=== PATIENT | male | born 1955 | race Caucasian/White ===

== ENCOUNTER 2024-02-16 15:21 | Inpatient (IN) | payer MEDICARE ==
[~2024-02-16] VITALS: Ht 177.8 cm; Wt 98.9 kg
[2024-02-16] MEDS ORDERED: NITROGLYCERIN PACKET 1 GM PACKET ONE (15:40)
[2024-02-16] MEDS: NITROGLYCERIN PACKET 1 GM PACKET TD ONE (15:41)
[2024-02-16 15:46] LABS: BASOPHILS % (AUTO) 0.8 % (0.0-2.0); EOSINOPHILS # (AUTO) 0.2 K/uL (0.0-0.7); EOSINOPHILS % (AUTO) 3.5 % (0.0-6.0); HEMATOCRIT 33 % (39-51); HEMOGLOBIN 11.2 g/dL (13.5-17.5); LYMPHOCYTES # (AUTO) 0.7 K/uL (0.8-4.8); LYMPHOCYTES % (AUTO) 13.8 % (20.0-44.0); MEAN CORPUSCULAR HEMOGLOBIN 31 PG (26.0-33.0); MEAN CORPUSCULAR HGB CONC 34 g/dl (31.0-36.0); MEAN CORPUSCULAR VOLUME 92 fL (80-96); MONOCYTES # (AUTO) 0.5 K/uL (0.1-1.30); MONOCYTES % (AUTO) 10.1 % (2.0-12.0); NEUTROPHILS # (AUTO) 3.7 K/uL (1.8-8.9); NEUTROPHILS % (AUTO) 71.8 % (43.0-81.0); PLATELET COUNT (AUTO) 132 K/uL (150-450); RED BLOOD CELL COUNT(AUTO) 3.59 MIL/uL (4.5-6.0); RED CELL DISTRIBUTION WIDTH 13.6 % (11.5-15.0); WHITE BLOOD COUNT (AUTO) 5.2 K/uL (4.3-11.0)
[2024-02-16 16:05] LABS: CALCIUM, SERUM 8.9 mg/dL (8.5-10.1); CARBON DIOXIDE 28 mmol/L (21-32); CHLORIDE 101 mmol/L (98-107); CREATININE 5.7 mg/dL (0.6-1.3); GLUCOSE 286 mg/dL (74-106); POTASSIUM 4.1 mmol/L (3.5-5.1); SODIUM SERUM 140 mmol/L (136-145); UREA NITROGEN, BLOOD 34 mg/dL (7-18)
[2024-02-16] MEDS ORDERED: LEVO200T8 PO (16:16)
[2024-02-16] MEDS ORDERED: TAMS-12 PO (16:16)
[2024-02-16] MEDS ORDERED: CLON0.1T PO (16:16)
[2024-02-16] MEDS ORDERED: HYDR100T27 PO (16:16)
[2024-02-16] MEDS ORDERED: CLOP75TA15 PO (16:16)
[2024-02-16] MEDS ORDERED: DOCU100T2 PO (16:16)
[2024-02-16] MEDS ORDERED: OMEP20CA15 PO (16:16)
[2024-02-16] MEDS ORDERED: ATOR40TA PO (16:16)
[2024-02-16] MEDS ORDERED: ISOS60TA72 PO (16:16)
[2024-02-16] MEDS ORDERED: CHOL500052 PO (16:16)
[2024-02-16] MEDS ORDERED: ASPI-1169 PO (16:16)
[2024-02-16] MEDS ORDERED: LOSA50TA39 PO (16:16)
[2024-02-16] MEDS ORDERED: CARV25TA2 PO (16:16)
[2024-02-16] MEDS ORDERED: CALC667C6 PO (16:16)
[2024-02-16] MEDS ORDERED: AMLO-212 PO (16:16)
[2024-02-16] MEDS ORDERED: INSU100I14 SQ (16:16)
[2024-02-16] MEDS ORDERED: FOLI0.4T6 PO (16:16)
[2024-02-16 16:20] LABS: INR 1.03 (0.91-1.10); PARTIAL THROMBOPLASTIN TIME 26.1 SEC (24.3-34.3); PROTHROMBIN TIME 10.9 SECS (9.2-11.1)
[2024-02-16] MEDS ORDERED: ONDANSETRON HCL/PF 4 MG/2 ML VIAL ONE (16:54)
[2024-02-16] MEDS ORDERED: MORPHINE SULFATE INJ 4 MG/ML DISP.SYRIN ONE (16:55)
[2024-02-16] MEDS: ONDANSETRON HCL/PF 4 MG/2 ML VIAL IVP ONE (17:01)
[2024-02-16] MEDS: MORPHINE SULFATE INJ 2 MG/ML DISP.SYRIN IV ONE (17:01)
[2024-02-16] MEDS ORDERED: Z GUARD REMEDY 4 OZ OINT TP PRN (18:00)
[2024-02-16] MEDS ORDERED: DEXTROSE 50%-WATER 50 ML DISP.SYRIN IV PRN (18:00)
[2024-02-16] MEDS ORDERED: ACETAMINOPHEN 325 MG TABLET PO PRN (18:00)
[2024-02-16] MEDS ORDERED: ONDANSETRON HCL/PF 4 MG/2 ML VIAL IVP PRN (18:00)
[2024-02-16 20:00] VITALS: BP 147/61; TEMP 98.3; O2SAT 93
[2024-02-16] MEDS: ASPIRIN 325 MG TABLET PO STA (20:34)
[2024-02-16] MEDS: NITROGLYCERIN PACKET 1 GM PACKET TOP SCH (20:34)
[2024-02-16] MEDS: METOPROLOL TARTRATE 25 MG TABLET PO SCH (20:36)
[2024-02-16] MEDS: CALCIUM ACETATE 667 MG CAP/TAB PO SCH (20:42)
[2024-02-16] MEDS ORDERED: HEPARIN SODIUM, PORCINE 5000 UNITS/1 ML VIAL SQ SCH (21:00)
[2024-02-16] MEDS: HEPARIN SODIUM, PORCINE 5000 UNITS/1 ML VIAL IVF PRN (21:20)
[2024-02-16] MEDS: HEPARIN INFUSION/D5W 500 ML IV SCH (21:32)
[2024-02-16] MEDS: PANTOPRAZOLE 40 MG TABLET.DR PO ONE (22:44)
[2024-02-16] MEDS: BLOOD SUGAR DIAGNOSTIC 1 EACH STRIP IN SCH (22:51)
[2024-02-17] VITALS: BP_SYST 120; BP_SYST 147; BP_DIAS 62; BP_DIAS 65; TEMP 98.2; TEMP 98.4; O2SAT 95; O2SAT 97
[2024-02-17 04:00] VITALS: BP 145/60; TEMP 98.1; O2SAT 96
[2024-02-17 05:13] LABS: BASOPHILS # (AUTO) 0.1 K/uL (0.0-0.2); BASOPHILS % (AUTO) 1.6 % (0.0-2.0); EOSINOPHILS # (AUTO) 0.3 K/uL (0.0-0.7); HEMATOCRIT 32 % (39-51); HEMOGLOBIN 10.8 g/dL (13.5-17.5); LYMPHOCYTES # (AUTO) 1.3 K/uL (0.8-4.8); LYMPHOCYTES % (AUTO) 25.2 % (20.0-44.0); MEAN CORPUSCULAR HEMOGLOBIN 31 PG (26.0-33.0); MEAN CORPUSCULAR HGB CONC 34 g/dl (31.0-36.0); MEAN CORPUSCULAR VOLUME 92 fL (80-96); MONOCYTES # (AUTO) 0.6 K/uL (0.1-1.30); MONOCYTES % (AUTO) 12.2 % (2.0-12.0); NEUTROPHILS # (AUTO) 2.8 K/uL (1.8-8.9); PLATELET COUNT (AUTO) 121 K/uL (150-450); RED BLOOD CELL COUNT(AUTO) 3.49 MIL/uL (4.5-6.0); RED CELL DISTRIBUTION WIDTH 13.7 % (11.5-15.0); WHITE BLOOD COUNT (AUTO) 5.1 K/uL (4.3-11.0)
[2024-02-17 05:27] LABS: CALCIUM, SERUM 9.3 mg/dL (8.5-10.1); CREATININE 6.9 mg/dL (0.6-1.3); MAGNESIUM 2.3 mg/dL (1.8-2.4); PHOSPHORUS 5.6 mg/dL (2.5-4.9); POTASSIUM 4.9 mmol/L (3.5-5.1)
[2024-02-17 05:34] LABS: INR 1.08 (0.91-1.10); PARTIAL THROMBOPLASTIN TIME 64.2 SEC (24.3-34.3); PROTHROMBIN TIME 11.4 SECS (9.2-11.1)
[2024-02-17] MEDS: INSULIN REGULAR, HUMAN 100 UNIT/ML 3 ML VIAL SQ PRN (06:43)
[2024-02-17 08:00] VITALS: BP 140/62; TEMP 97.7; O2SAT 95
[2024-02-17] MEDS: PANTOPRAZOLE 40 MG TABLET.DR PO SCH (08:02)
[2024-02-17] MEDS ORDERED: ASPIRIN 81 MG TAB.CHEW PO SCH (09:00)
[2024-02-17] MEDS ORDERED: CARVEDILOL 12.5 MG TABLET PO SCH (09:00)
[2024-02-17] MEDS: ATORVASTATIN 40 MG TABLET PO SCH (09:38)
[2024-02-17] MEDS: FOLIC ACID 1 MG TABLET PO SCH (09:38)
[2024-02-17] MEDS: AMLODIPINE BESYLATE 5 MG TABLET PO SCH (09:38)
[2024-02-17] MEDS: ISOSORBIDE MONONITRATE (30MG) 30 MG TAB.SR.24H PO SCH (09:39)
[2024-02-17] MEDS: hydrALAZINE HCL 50 MG TABLET PO SCH (09:39)
[2024-02-17] MEDS: CLOPIDOGREL BISULFATE 75 MG TABLET PO SCH (09:40)
[2024-02-17] MEDS: LOSARTAN POTASSIUM 50 MG TABLET PO SCH (09:40)
[2024-02-17] MEDS: TAMSULOSIN 0.4 MG CAP.SR.24H PO SCH (09:40)
[2024-02-17] MEDS: LEVOTHYROXINE SODIUM 100 MCG TABLET PO SCH (09:40)
[2024-02-17] MEDS: ASPIRIN 325 MG TABLET PO SCH (09:40)
[2024-02-17] MEDS: DOCUSATE SODIUM 100 MG CAPSULE PO SCH (09:40)
[2024-02-17 11:37] VITALS: BP 147/58; TEMP 97.9; O2SAT 98
[2024-02-17] MEDS: CALCIUM CARBONATE 500 MG TAB.CHEW PO SCH (12:17)
[2024-02-17 16:00] VITALS: BP 150/60; TEMP 98.1; O2SAT 96
[2024-02-17 20:00] VITALS: BP 173/67; TEMP 97.7; O2SAT 98
[2024-02-18] VITALS (17 sets, daily range): BP systolic 135–158; BP diastolic 53–65; TEMP 97.5–98.1; O2SAT 90–98
[2024-02-18 06:52] LABS: BASOPHILS # (AUTO) 0.1 K/uL (0.0-0.2); BASOPHILS % (AUTO) 1.2 % (0.0-2.0); EOSINOPHILS # (AUTO) 0.3 K/uL (0.0-0.7); EOSINOPHILS % (AUTO) 4.7 % (0.0-6.0); HEMATOCRIT 30 % (39-51); LYMPHOCYTES # (AUTO) 1.1 K/uL (0.8-4.8); LYMPHOCYTES % (AUTO) 19.9 % (20.0-44.0); MEAN CORPUSCULAR HEMOGLOBIN 31 PG (26.0-33.0); MEAN CORPUSCULAR HGB CONC 34 g/dl (31.0-36.0); MEAN CORPUSCULAR VOLUME 93 fL (80-96); MONOCYTES # (AUTO) 0.6 K/uL (0.1-1.30); MONOCYTES % (AUTO) 11.2 % (2.0-12.0); NEUTROPHILS # (AUTO) 3.5 K/uL (1.8-8.9); PLATELET COUNT (AUTO) 121 K/uL (150-450); RED BLOOD CELL COUNT(AUTO) 3.18 MIL/uL (4.5-6.0); RED CELL DISTRIBUTION WIDTH 13.7 % (11.5-15.0); WHITE BLOOD COUNT (AUTO) 5.6 K/uL (4.3-11.0)
[2024-02-18 07:17] LABS: INR 1.06 (0.91-1.10); PARTIAL THROMBOPLASTIN TIME 54.7 SEC (24.3-34.3); PROTHROMBIN TIME 11.2 SECS (9.2-11.1)
[2024-02-18 07:23] LABS: ALBUMIN 2.5 g/dL (3.4-5.0); BILIRUBIN,TOTAL 0.2 mg/dL (0.2-1.0); CALCIUM, SERUM 8.8 mg/dL (8.5-10.1); MAGNESIUM 2.4 mg/dL (1.8-2.4); PHOSPHORUS 6.5 mg/dL (2.5-4.9); POTASSIUM 5.7 mmol/L (3.5-5.1); TOTAL PROTEIN, SERUM 6.2 g/dL (6.4-8.2)
[2024-02-18 07:26] LABS: CREATININE 8.6 mg/dL (0.6-1.3)
[2024-02-18] MEDS ORDERED: IODIXANOL 320MG/ML 100 ML IV ONE ×3 (12:58→14:48)
[2024-02-18] MEDS ORDERED: IV SET PRIMARY PUMP SET 1 EA INFUS.SET MC ONE (12:58)
[2024-02-18] MEDS ORDERED: IV NS 0.9% 500 ML IV ONE ×2 (12:58→14:49)
[2024-02-18] MEDS ORDERED: LIDOCAINE HCL/MPF 1% 30 ML VIAL IJ ONE ×2 (13:35→22:14)
[2024-02-18] MEDS ORDERED: MIDAZOLAM HCL 2 MG/2ML VIAL ONE (14:17)
[2024-02-18] MEDS ORDERED: FENTANYL PF 100MCG/2ML AMPUL ONE (14:17)
[2024-02-18] MEDS ORDERED: IODIXANOL 320MG/ML 50 ML IV ONE ×2 (14:45→15:18)
[2024-02-18] MEDS ORDERED: HEPARIN SODIUM, PORCINE 5000 UNITS/1 ML VIAL ONE (14:45)
[2024-02-18] MEDS ORDERED: HEPARIN SODIUM, PORCINE 1,000 UNIT/ML VIAL ONE ×3 (14:45→15:30)
[2024-02-18] MEDS ORDERED: ADENOSINE 6 MG/2 ML VIAL ONE (14:49)
[2024-02-18] MEDS ORDERED: hydrALAZINE HCL IV 20 MG VIAL ONE (15:06)
[2024-02-18] MEDS ORDERED: CLOPIDOGREL BISULFATE 300 MG TABLET ONE (15:21)
[2024-02-18] MEDS: HEPARIN SODIUM, PORCINE 1000 UNIT/1 ML VIAL IV ONE (15:43)
[2024-02-18] MEDS: APIXABAN 5 MG TABLET PO SCH (20:50)
[2024-02-18] MEDS: AMLODIPINE BESYLATE 5 MG TABLET PO SCH (20:51)
[2024-02-18] MEDS: LOSARTAN POTASSIUM 50 MG TABLET PO SCH (20:51)
[2024-02-18] MEDS: MORPHINE SULFATE INJ 2 MG/ML DISP.SYRIN IV PRN (22:07)
[2024-02-18] MEDS: TAMSULOSIN 0.4 MG CAP.SR.24H PO SCH (22:26)
[2024-02-18] MEDS: hydrALAZINE HCL 50 MG TABLET PO SCH (22:28)
[2024-02-18] MEDS ORDERED: LIDOCAINE 1% INJ 50 ML MDV IJ ONE (22:30)
[2024-02-18] MEDS: LIDOCAINE HCL/MPF 1% 30 ML VIAL IJ ONE (22:34)
[2024-02-19] VITALS (10 sets, daily range): BP systolic 119–151; BP diastolic 47–58; TEMP 98–98.8; O2SAT 94–98
[2024-02-19] MEDS: LEVOTHYROXINE SODIUM 100 MCG TABLET PO SCH (08:14)
[2024-02-19] MEDS: ATORVASTATIN 10 MG TABLET PO SCH (08:17)
[2024-02-19] MEDS: ASPIRIN 325 MG TABLET PO SCH (08:18)
[2024-02-19 09:22] LABS: CALCIUM, SERUM 8.4 mg/dL (8.5-10.1); POTASSIUM 4.6 mmol/L (3.5-5.1)
[2024-02-19] MEDS ORDERED: APIX5TAB PO (10:45)
[2024-02-19] MEDS ORDERED: ATOR10TA PO (10:45)
[2024-02-19] MEDS ORDERED: ATORVASTATIN 10 MG TABLET PO SCH (22:00)
[2024-02-21 01:10] LABS: HEPATITIS B SURFACE AB Non Reactive (.)
== END 2024-02-19 13:42 | disposition home or self-care (01) | DRG 321 ==
LOC: ER 15:49 → TELE 17:10 → ICU 02-18 16:11 → TELE1 02-19 06:25
PROVIDERS: ADMIT Nurse Practitioner Family; ATTEND Nurse Practitioner Acute Care
PROC: 5A1D70Z Performance of Urinary Filtration, Intermittent, Less than 6 Hours Per Day (ICD-10-PCS; principal; 2024-02-18)
PROC: 027034Z Dilation of Coronary Artery, One Artery with Drug-eluting Intraluminal Device, Percutaneous Approach (ICD-10-PCS; 2024-02-18)
PROC: 02703ZZ Dilation of Coronary Artery, One Artery, Percutaneous Approach (ICD-10-PCS; 2024-02-18)
PROC: 4A023N7 Measurement of Cardiac Sampling and Pressure, Left Heart, Percutaneous Approach (ICD-10-PCS; 2024-02-18)
PROC: B211YZZ Fluoroscopy of Multiple Coronary Arteries using Other Contrast (ICD-10-PCS; 2024-02-18)
PROC: B41DYZZ Fluoroscopy of Aorta and Bilateral Lower Extremity Arteries using Other Contrast (ICD-10-PCS; 2024-02-18)
PROC: B31NYZZ Fluoroscopy of Other Upper Arteries using Other Contrast (ICD-10-PCS; 2024-02-18)
DX: T82.855A Stenosis of coronary artery stent, initial encounter (principal); I21.4 Non-ST elevation (NSTEMI) myocardial infarction; N18.6 End stage renal disease; I12.0 Hypertensive chronic kidney disease with stage 5 chronic kidney disease or end stage renal disease; E11.22 Type 2 diabetes mellitus with diabetic chronic kidney disease; I25.10 Atherosclerotic heart disease of native coronary artery without angina pectoris; Z95.5 Presence of coronary angioplasty implant and graft; Z95.1 Presence of aortocoronary bypass graft; Z99.2 Dependence on renal dialysis; Z79.899 Other long term (current) drug therapy; Z79.82 Long term (current) use of aspirin; Z79.4 Long term (current) use of insulin; Z79.02 Long term (current) use of antithrombotics/antiplatelets; Z79.890 Hormone replacement therapy; Z76.82 Awaiting organ transplant status; Z85.850 Personal history of malignant neoplasm of thyroid; Z87.891 Personal history of nicotine dependence; I48.91 Unspecified atrial fibrillation; M89.8X9 Other specified disorders of bone, unspecified site; I25.2 Old myocardial infarction; E89.0 Postprocedural hypothyroidism; D64.9 Anemia, unspecified; Y83.8 Other surgical procedures as the cause of abnormal reaction of the patient, or of later complication, without mention of misadventure at the time of the procedure; Y92.009 Unspecified place in unspecified non-institutional (private) residence as the place of occurrence of the external cause
CPT/HCPCS: 36415; 71045-TC; 80048-TC; 80053-TC; 80061-TC; 82962-TC; 83735-TC; 84100-TC; 84484-TC; 85025-TC; 85610-TC; 85730-TC; 86706; 87081-TC; 87340; 90935-TC; 93307-TC; A4223; G0378; J0153; J0360; J1644; J1815; J2250; J2270; J2405; J3010; J3490; J7030; J7040; Q9967